=== PATIENT | male | born 1970 | race Caucasian/White ===

== ENCOUNTER → 2019-12-05 08:35 | Outpatient (BNVA) | payer OTHER, SELFPAY | PROVIDERS: Visit Provider Nurse Practitioner | DX: Z87.19 Personal history of other diseases of the digestive system (principal) | CPT/HCPCS: 99212 ==

== ENCOUNTER 2020-10-03 08:59 | Outpatient (REF) | payer OTHER, SELFPAY ==
[2020-10-03 12:23] LABS: Alanine Aminotransferase 47 U/L (0-40); Albumin Level 4.6 g/dL (3.5-5.0); Alkaline Phosphatase 95 U/L (39-117); Anion Gap 14 (12-20); Aspartate Amino Transferase 39 U/L (5-37); Bilirubin Total 0.5 mg/dL (0.0-1.0); Blood Urea Nitrogen 16 mg/dL (9-16); Calcium 9.5 mg/dL (8.4-10.2); Carbon Dioxide 22 mmol/L (22-29); Chloride 108 mmol/L (96-108); Cholesterol 202 mg/dL; Estimated Glomerular Filt Rate > 60; Glucose Fasting 119 mg/dL (60-99); HDL Cholesterol 45 mg/dL; LDL Cholesterol Calculated 121 mg/dl; Potassium 4.2 mmol/L (3.3-5.1); Sodium 140 mmol/L (135-145); Total Protein 7.3 g/dL (6.5-8.0); Triglycerides 181 mg/dL
== END 2020-10-03 09:00 | disposition home or self-care (01) ==
LOC: HO.HMGCLDS 08:59
PROVIDERS: PCP Internal Medicine; Visit Provider Internal Medicine
DX: Z00.01 Encounter for general adult medical examination with abnormal findings (principal); E78.1 Pure hyperglyceridemia
CPT/HCPCS: 36415; 80053; 80061

== ENCOUNTER → 2020-11-27 08:30 | Outpatient (BNVA) | payer OTHER, SELFPAY | PROVIDERS: Visit Provider Nurse Practitioner | DX: Z13.89 Encounter for screening for other disorder (principal) | CPT/HCPCS: Q3014 ==

== ENCOUNTER 2021-09-30 08:26 | Outpatient (REF) | payer OTHER, SELFPAY ==
[2021-09-30 11:59] LABS: Alanine Aminotransferase 15 U/L (0-40); Albumin Level 4.5 g/dL (3.5-5.0); Alkaline Phosphatase 86 U/L (39-117); Anion Gap 14 (12-20); Aspartate Amino Transferase 20 U/L (5-37); Bilirubin Total 0.6 mg/dL (0.0-1.0); Blood Urea Nitrogen 13 mg/dL (9-16); Calcium 9.2 mg/dL (8.4-10.2); Carbon Dioxide 25 mmol/L (22-29); Chloride 105 mmol/L (96-108); Cholesterol 200 mg/dL; Estimated Glomerular Filt Rate > 60; Glucose Fasting 104 mg/dL (60-99); HDL Cholesterol 46 mg/dL; LDL Cholesterol Calculated 117 mg/dl; Potassium 4.3 mmol/L (3.3-5.1); Sodium 140 mmol/L (135-145); Total Protein 7.3 g/dL (6.5-8.0); Triglycerides 189 mg/dL
== END 2021-09-30 08:27 | disposition home or self-care (01) ==
LOC: HO.HMGCLDS 08:26
PROVIDERS: PCP Internal Medicine; Visit Provider Internal Medicine
DX: E78.1 Pure hyperglyceridemia (principal); R73.01 Impaired fasting glucose; E66.9 Obesity, unspecified
CPT/HCPCS: 36415; 80053; 80061

== ENCOUNTER 2022-01-11 10:03 | Outpatient (REF) | payer OTHER, SELFPAY ==
[2022-01-11 11:44] LABS: Estimated Average Glucose 108 mg/dL; Hemoglobin A1c % 5.4 %
[2022-01-11 12:12] LABS: Alanine Aminotransferase 15 U/L (0-40); Anion Gap 15 (12-20); Aspartate Amino Transferase 18 U/L (5-37); Blood Urea Nitrogen 18 mg/dL (9-16); Calcium 9.6 mg/dL (8.4-10.2); Carbon Dioxide 26 mmol/L (22-29); Chloride 106 mmol/L (96-108); Cholesterol 180 mg/dL; Estimated Glomerular Filt Rate > 60; Glucose Fasting 117 mg/dL (60-99); HDL Cholesterol 61 mg/dL; LDL Cholesterol Calculated 105 mg/dl; Potassium 4.5 mmol/L (3.3-5.1); Sodium 142 mmol/L (135-145); Triglycerides 70 mg/dL
== END 2022-01-11 10:04 | disposition home or self-care (01) ==
LOC: HO.HMGCLDS 10:03
PROVIDERS: PCP Internal Medicine; Visit Provider Internal Medicine
DX: E66.9 Obesity, unspecified (principal); R73.01 Impaired fasting glucose; E78.1 Pure hyperglyceridemia
CPT/HCPCS: 36415; 80048; 80061; 83036; 84450; 84460

== ENCOUNTER 2022-07-20 10:26 | Outpatient (AMB) | payer OTHER, SELFPAY ==
--- NOTE | 2022-07-20 11:28 | A.OFFPC_ITS ---
<Statement entered by Flores High MD - 06/13/24 15:17> This note has been administratively?closed. Vital Signs 07/20/22 11:39 Height 6 ft 2 in Weight 264 lb BMI 33.9 BP 100/74 Blood Pressure Location Lt brachial Position Sitting Pulse 64 Pulse Source Pulse Oximeter Pulse Oximetry (%) 94 Oxygen Delivery Method Room Air Intake Visit Reasons: Annual Intake Note: Pt is here today for his Physical Exam Allergies penicillin G [Penicillin G] Allergy (Unknown, Verified 07/20/22 11:51) EYES SWELL egg Allergy (Verified 07/20/22 11:51) Diarrhea barium sulfate Adverse Reaction (Unknown, Verified 07/20/22 11:51) mood swings oxycodone [Percocet] Adverse Reaction (Unknown, Verified 07/20/22 11:51) gi upset zyban Adverse Reaction (Unknown, Uncoded 07/20/22 11:51) flatulence Medication List - Last Reconciled 07/20/22 by Flores High MD brimonidine 0.2% 1 drp ophthalmic (eye) BID famotidine 20 mg PO BEDTIME PRN gemfibrozil 600 mg PO BID 90 days timolol maleate (PF) 0.5% 1 drp ophthalmic (eye) DAILY Tobacco use date assessed: 07/20/22 HPI Annual HPI Details 52-year-old male with impaired fasting glucose, history of glaucoma, hypertriglyceridemia and heartburn, here today for physical exam. He continues to smoke cigarettes, but has been trying to cut back, not motivated to quit altogether.. He has had 2 COVID vaccine but has not had booster, nor does he get flu shots, up-to-date with Tdap [facility] Medical History COVID-19 vaccination declined Glaucoma Heartburn Hx of pancreatitis Hypertriglyceridemia Impaired fasting glucose Obesity (BMI 30-39.9) Smoker unmotivated to quit Surgical History Status post glaucoma surgery Family History Father Cerebral aneurysm Mother Hyperlipidemia Hypertension Diabetes mellitus Social History Housing: House Alcohol intake: former Patient Tobacco Use Status: Current everyday Tobacco user Tobacco use type: Cigarette Cigarettes Per Day: 4 e-Cigarette/Vaping Use: Never Used Substance Use Type: Marijuana service: No Current occupational status: disabled Cognitive needs: No Hearing needs: No Vision needs: Yes Questionnaire PHQ-9 Over the last 2 weeks, how often have you been bothered by any of the following problems? 1. Little interest or pleasure in doing things: not at all 2. Feeling down, depressed, or hopeless: not at all 3. Trouble falling or staying asleep, or sleeping too much: several days 4. Feeling tired or having little energy: not at all 5. Poor appetite or overeating: not at all 6. Feeling bad about yourself - or that you are a failure or have let yourself or your family down: not at all 7. Trouble concentrating on things, such as reading the newspaper or watching television: not at all 8. Moving or speaking so slowly that other people could have noticed. Or the opposite - being so fidgety or restless that you have been moving around a lot more than usual: not at all 9. Thoughts that you would be better off or of hurting yourself in some way: not at all Total score: 1 Depression Screening Interpretation: Negative 98968 - PHQ-9 Billing: Yes Source: Developed by Drs. Wilber Arellano, Tanika Zambrano, Palmer Tabares and colleagues, with an educational grace from [employer]. Thrive Questionnaire Date Thrive assessed: 07/20/22 I am a: Patient What is your living situation today?: I have a steady place to live Within the past 12 months, did the food you bought not last and you didn't have the money to get more?: Never true Within the past 12 months, did you worry whether your food would run out before you got money to buy more?: Never true Do you have trouble paying for medicines?: No Do you have trouble getting transportation to medical appointments?: No Do you have trouble paying your heating and electricity bill?: No Do you have trouble taking care of your child, family member or friend?: No Do you have trouble with day-to-day activities such as bathing, preparing meals, shopping, managing finances, etc.?: No Are you currently unemployed and looking for a job?: No Are you interested in more education?: No AUDIT C Alcohol Use Questionnaire (AUDIT-C) 1. How often do you have a drink containing alcohol?: Monthly or less 2. How many drinks containing alcohol do you have on a typical day when you are drinking?: 1 or 2 3. How often do you have six or more drinks on one occasion?: Never Total Score: 1 JAEL-7 AMB Questionnaire JAEL-7 Date JAEL - 7 assessed: 07/20/22 Feeling nervous, anxious, or on edge: 0 = Not at all Not being able to stop or control worryin = Not at all Worrying too much about different things: 0 = Not at all Trouble relaxin = Not at all Being so restless that it is hard to sit still: 0 = Not at all Becoming easily annoyed or irritable: 0 = Not at all Feeling afraid as if something awful might happen: 0 = Not at all Total JAEL-7 score (0-4 normal; 5-9 mild; 10-14 moderate; 15-21 severe): 0 Source: Developed by Drs. Wilber Arellano, Tanika Zambrano, Palmer Tabares and colleagues, with an educational grace from [employer]. JAEL-7 Assessment Billing JAEL-7 Assessment Tool: JAEL-7 Assessment 37463 Review of Systems Const Reports as per HPI, Denies fever(s), Denies night sweats and Denies poor appetite Eyes Details: Currently sees Dr. Dent, has glaucoma Denies change in vision ENT Denies dysphagia, Denies hearing loss, Denies mouth pain, Denies throat swelling and Reports other (Dentition adequate) Card Reports no additional complaints Resp Reports no additional complaints GI Denies abdominal pain, Denies melena, Denies bloating, Denies hematochezia, Denies constipation, Denies GI cramping, Denies dysphagia, Denies excessive flatus, Denies early satiety, Denies heartburn, Denies diarrhea and Denies nausea Reports no additional complaints Musc Reports no additional complaints Skin/Breast Denies pruritus, Denies lesions, Denies rash and Denies jaundice Neuro Reports no additional complaints Psych Reports no additional complaints Endo Reports no additional complaints Todd/Lymph Reports no additional complaints Aller/Immun Denies throat swelling Physical exam (Primary Care) Vital Signs: Last Vital Signs Pulse 64 07/20/22 11:39 BP 100/74 07/20/22 11:39 Pulse Ox 94 07/20/22 11:39 Oxygen Delivery Method Room Air 07/20/22 11:39 BMI result Body Mass Index 33.9 Tobacco/Smoking Status: Tobacco use Status Tobacco use date assessed 07/20/22 07/20/22 11:30 Patient Tobacco Use Status Current everyday Tobacco 07/20/22 11:30 Tobacco use type Cigarette 07/20/22 11:30 e-Cigarette/Vaping Use Never Used 07/20/22 11:44 PHQ-9: PHQ-9 Score PHQ-9: Total score 1 07/20/22 11:44 Depression Screening Interpretation: Negative Thrive Assessment: Date of Thrive Assessment Date Thrive assessed 07/20/22 07/20/22 11:30 Const General: cooperative, comfortable and no acute distress Orientation/consciousness: patient oriented x3 Limitations: no limitations HENMT Head: Yes normocephalic and Yes atraumatic Ears: hearing grossly normal bilaterally, external ears normal, TM's normal bilaterally and EAC's normal General nose exam: Normal external nose present and No nasal discharge present Mouth: Normal oral and palatal mucosa present, oropharynx normal and moist mucous membranes Teeth and gingiva: edentulous Eyes General: appearance normal, both eyes and all related structures Conjunctivae: conjunctivae normal Pupils: Equal, round and reactive pupils present EOM: EOMs intact bilaterally Neck Neck: Yes full ROM, Yes no lymphadenopathy and Yes supple Chest Chest palpation & inspection: normal inspection of the chest Resp Effort & Inspection: normal respiratory effort and able to speak in complete sentences Auscultation: clear to auscultation bilaterally Cardio Rate: regular rate Rhythm: regular rhythm Heart sounds: S1 normal heart sound present and S2 normal heart sound present GI Inspection: Yes obesity Palpation (GI): Soft to palpation, nontender and no masses Auscultation: normal bowel sounds General: Yes no CVA tenderness Male General Exam: Yes normal external exam Penis: normal penis Back/Spine/Pelvis Back: no CVA tenderness Skin General skin exam: no rashes or lesions noted Neuro General: patient oriented x3, gait normal, tone normal, moves all extremities, Normal light touch and pain sensation and no focal motor deficits Cranial nerves: Yes Equal, round and reactive pupils present Cognition (Neuro): normal cognition Gait exam (Neuro): Normal gait present Motor exam (neuro): 5/5 motor strength present throughout Extrem General: Yes full ROM, Yes no joint enlargement, Yes no clubbing, cyanosis or edema, Yes no calf tenderness and Yes normal gait Psych Appearance: grossly normal and well kempt Mental Status: mental status grossly normal Speech and movement: Normal speech and movement present Affect: normal affect Attitude: cooperative Thought process: Normal thought process present Thought content: Normal thought content present Assessment and Plan Assessment & Plan (1) Annual visit for general adult medical examination with abnormal findings: Code(s): Z00.01 - Encounter for general adult medical examination with abnormal findings (2) COVID-19 vaccination declined: Code(s): Z28.21 - Immunization not carried out because of patient refusal (3) Smoker unmotivated to quit: Code(s): F17.200 - Nicotine dependence, unspecified, uncomplicated (4) Impaired fasting glucose: Code(s): R73.01 - Impaired fasting glucose (5) Obesity (BMI 30-39.9): Code(s): E66.9 - Obesity, unspecified (6) Glaucoma: Comment: ff'd by Dr Dent Code(s): H40.9 - Unspecified glaucoma (7) Hypertriglyceridemia: Code(s): E78.1 - Pure hyperglyceridemia Coding Level of Care Code Est Pt Prev Care 40-64y(10306) Diagnoses Annual visit for general adult medical examination with abnormal findings Z00.01 COVID-19 vaccination declined Z28.21 Smoker unmotivated to quit F17.200 Impaired fasting glucose R73.01 Obesity (BMI 30-39.9) E66.9 Glaucoma H40.9 Hypertriglyceridemia E78.1 Additional Codes JAEL-7 Assessment Billing - JAEL-7 Assessment Tool: JAEL-7 Assessment 74326 ([id number])
[2022-07-20 11:39] VITALS: BP 100/74; PULSE 64; O2SAT 94; BMI 33.9
== END 2022-07-20 12:24 | disposition home or self-care (01) ==
LOC: HO.HMGC 10:26
PROVIDERS: PCP Internal Medicine; Visit Provider Internal Medicine
DX: Z00.01 Encounter for general adult medical examination with abnormal findings (principal); Z28.21 Immunization not carried out because of patient refusal; F17.200 Nicotine dependence, unspecified, uncomplicated; R73.01 Impaired fasting glucose; E66.9 Obesity, unspecified; H40.9 Unspecified glaucoma; E78.1 Pure hyperglyceridemia
CPT/HCPCS: 99499

== ENCOUNTER 2023-01-13 08:22 | Outpatient (REF) | payer OTHER, SELFPAY ==
[2023-01-13 11:46] LABS: Estimated Average Glucose 105 mg/dL; Hemoglobin A1c % 5.3 % (<6.0)
[2023-01-13 11:50] LABS: Alanine Aminotransferase 18 U/L (0-40); Aspartate Amino Transferase 24 U/L (5-37); Cholesterol 191 mg/dL (<200); Glucose Fasting 113 mg/dL (60-99); HDL Cholesterol 43 mg/dL (>40); LDL Cholesterol Calculated 123 mg/dL (<100); Triglycerides 125 mg/dL (<150)
== END 2023-01-13 08:23 | disposition home or self-care (01) ==
LOC: HO.HMGCLDS 08:22
PROVIDERS: PCP Internal Medicine; Visit Provider Internal Medicine
DX: R73.01 Impaired fasting glucose (principal); E66.9 Obesity, unspecified; E78.1 Pure hyperglyceridemia
CPT/HCPCS: 36415; 80061; 82947; 83036; 84450; 84460

== ENCOUNTER 2023-01-17 11:26 | Outpatient (AMB) | payer OTHER, SELFPAY ==
[2023-01-17 12:04] VITALS: BP 100/68; PULSE 55; O2SAT 97; BMI 33.4
--- NOTE | 2023-01-17 12:04 | A.OFFPC_ITS ---
Vital Signs 01/17/23 12:04 Height 6 ft 2 in Weight 260 lb 6 oz BMI 33.4 BP 100/68 Blood Pressure Location Rt brachial Position Sitting Pulse 55 Pulse Source Pulse Oximeter Pulse Oximetry (%) 97 Oxygen Delivery Method Room Air Intake Visit Reasons: hypertriglyceridemia ,obesity, fasting glucose Intake Note: Pt is here to follow up for his lab results Allergies penicillin G [Penicillin G] Allergy (Unknown, Verified 01/17/23 12:35) EYES SWELL egg Allergy (Verified 01/17/23 12:35) Diarrhea barium sulfate Adverse Reaction (Unknown, Verified 01/17/23 12:35) mood swings oxycodone [Percocet] Adverse Reaction (Unknown, Verified 01/17/23 12:35) gi upset zyban Adverse Reaction (Unknown, Uncoded 01/17/23 12:35) flatulence Medication List - Last Reconciled 01/17/23 by Flores High MD brimonidine 0.2% 1 drp ophthalmic (eye) BID famotidine 20 mg PO BEDTIME PRN gemfibrozil 600 mg PO BID 90 days timolol maleate (PF) 0.5% 1 drp ophthalmic (eye) DAILY Tobacco use date assessed: 01/17/23 Dental Screening Dental Screen Date: 01/17/23 Did you have a dental visit in the last 12 months?: No Did you have a dental problem in the last 6 months where you did not have access to dental care?: No Was dental information given to patient?: No HPI hypertriglyceridemia ,obesity, fasting glucose HPI Details 53-year-old male hypertriglyceridemia, a nd prediabetes, here today for his follow-up. He is currently on gemfibrozil, and has been trying to follow recommended diet, unable to exercise much due to joint pains. Recent fasting labs done showed fasting blood sugar at 113 mg per dL, with hemoglobin A1c at 5.3%; liver enzymes are normal and fasting lipids showed results within normal limits. Continues to smoke cigarettes, with no desire to quit at present time. HPI Comments History of Present Illness Details 53-year-old male with hypertriglyceridem ia, obesity, and prediabetes, here today for follow-up. FORMERLY [facility], [facility] Medical History COVID-19 vaccination declined Heartburn Smoker unmotivated to quit Impaired fasting glucose Obesity (BMI 30-39.9) Hx of pancreatitis Glaucoma Hypertriglyceridemia Surgical History Status post glaucoma surgery Family History Father Cerebral aneurysm Mother Hyperlipidemia Hypertension Diabetes mellitus Social History Housing: House Alcohol intake: former Patient Tobacco Use Status: Current everyday Tobacco user Tobacco use type: Cigarette Cigarettes Per Day: 4 e-Cigarette/Vaping Use: Never Used Substance Use Type: Marijuana service: No Current occupational status: disabled Cognitive needs: No Hearing needs: No Vision needs: Yes Questionnaire PHQ-9 Over the last 2 weeks, how often have you been bothered by any of the following problems? Depression Screening Interpretation: Negative Depression Screening Done: Yes Source: Developed by Drs. Wilber Arellano, Tanika Zambrano, Palmer Tabares and colleagues, with an educational grace from [employer]. Thrive Questionnaire Date Thrive assessed: 07/20/22 JAEL-7 AMB Questionnaire JAEL-7 Date JAEL - 7 assessed: 07/20/22 Source: Developed by Drs. Wilber Arellano, Tanika Zambrano, Palmer Tabares and colleagues, with an educational grace from [employer]. Review of Systems Const Denies fever(s) Eyes Details: Currently sees Dr. Dent, has glaucoma Denies change in vision ENT Denies hearing loss and Denies mouth pain Card Reports no additional complaints Resp Reports no additional complaints GI Reports no additional complaints and Reports heartburn (Controlled on famotidine) Reports no additional complaints Musc Reports no additional complaints Skin/Breast Denies pruritus, Denies lesions, Denies rash and Denies jaundice Neuro Reports no additional complaints Psych Reports no additional complaints Endo Reports no additional complaints Todd/Lymph Reports no additional complaints Aller/Immun Reports no additional complaints Physical exam (Primary Care) Vital Signs: Last Vital Signs Pulse 55 01/17/23 12:04 BP 100/68 01/17/23 12:04 Pulse Ox 97 01/17/23 12:04 Oxygen Delivery Method Room Air 01/17/23 12:04 BMI result Body Mass Index 33.4 Tobacco/Smoking Status: Tobacco use Status Tobacco use date assessed 01/17/23 01/17/23 12:09 Patient Tobacco Use Status Current everyday Tobacco 01/17/23 12:06 Tobacco use type Cigarette 01/17/23 12:06 e-Cigarette/Vaping Use Never Used 01/17/23 12:06 Depression Screening Interpretation: Negative Thrive Assessment: Date of Thrive Assessment Date Thrive assessed 07/20/22 01/17/23 12:06 Const General: cooperative, comfortable and no acute distress Orientation/consciousness: patient oriented x3 HENMT Head: Yes normocephalic and Yes atraumatic Ears: hearing grossly normal bilaterally and external ears normal General nose exam: Normal external nose present Mouth: Normal oral and palatal mucosa present and moist mucous membranes Teeth and gingiva: edentulous Eyes General: appearance normal, both eyes and all related structures Conjunctivae: conjunctivae normal Pupils: Equal, round and reactive pupils present EOM: EOMs intact bilaterally Neck Neck: Yes full ROM, Yes no lymphadenopathy and Yes supple Chest Chest palpation & inspection: normal inspection of the chest Resp Effort & Inspection: normal respiratory effort and able to speak in complete sentences Auscultation: clear to auscultation bilaterally Cardio Rate: regular rate Rhythm: regular rhythm Heart sounds: S1 normal heart sound present and S2 normal heart sound present GI Inspection: Yes obesity Palpation (GI): Soft to palpation, nontender and no masses Auscultation: normal bowel sounds General: Yes no CVA tenderness Male General Exam: Yes normal external exam Penis: normal penis Back/Spine/Pelvis Back: no CVA tenderness Skin General skin exam: no rashes or lesions noted Neuro General: patient oriented x3, gait normal, tone normal, moves all extremities, Normal light touch and pain sensation and no focal motor deficits Cranial nerves: Yes Equal, round and reactive pupils present Cognition (Neuro): normal cognition Gait exam (Neuro): Normal gait present Motor exam (neuro): 5/5 motor strength present throughout Extrem General: Yes full ROM, Yes no joint enlargement, Yes no clubbing, cyanosis or edema, Yes no calf tenderness and Yes normal gait Psych Appearance: grossly normal and well kempt Mental Status: mental status grossly normal Speech and movement: Normal speech and movement present Affect: normal affect Attitude: cooperative Thought process: Normal thought process present Thought content: Normal thought content present Results Reviewed Results Reviewed: Laboratory Tests 12/07/23 08:35 Estimat Average Glucose 105 Hemoglobin A1c % 5.3 Name: ParentWilber Age/Sex: 52/M : 1970 Unit#: [id number] Attend Dr: Flores High MD Re01/13/23 Status: DEP REF Location: [facility] Disch: SPEC : [id number] SHAW[place]: 01/13/23 STATUS: COMP REQ : [id number] RECD: 01/13/[address]: Flores High MD COMP: 01/13/23 ENTERED: 01/13/[address] [facility] [address]: ORDERED: Glu Fasting, AST, ALT, Lipid Panel Test Result Flag Reference Site FBS 113 H 60-99 mg/dL A fasting glucose from 100-125 mg/dl is considered impaired (pre-diabetes). AST (GOT) 24 5-37 U/L ALT (GPT) 18 0-40 U/L Triglyceride 125 <150 mg/dL Desirable Triglyceride: less than 150 mg/dL Borderline High Triglyceride 150-199 mg/dL High Triglyceride: 200-499 mg/dL Very High Triglyceride: greater than or equal to 5OO mg/dL Cholesterol 191 <200 mg/dL Desirable Cholesterol: less than 200 mg/dL Borderline High Cholesterol: 200-239 mg/dL High Cholesterol: greater than 239 mg/dL LDL Calculated 123 H <100 mg/dL Desirable LDL: less than 100 mg/dL Near Optimal/Above Optimal LDL: 110-129 mg/dL Borderline High LDL: 130-159 mg/dL High LDL: 160-189 mg/dL Very High LDL: greater than or equal to 190 mg/dL HDL 43 >40 mg/dL Desirable HDL: greater than 40 mg/dL Note: This HDL assay may give artificially low results in patients with liver disease. Assessment and Plan Assessment & Plan (1) Impaired fasting glucose: Code(s): R73.01 - Impaired fasting glucose Plan: Your fasting blood sugars is elevated above 100 mg/dL. Impaired glucose metabolism O2 at risk for developing diabetes mellitus type 2, as well as heart attack and stroke later on. Lifestyle changes at just weight loss, healthy eating habits, and regular exercise are important, and can prevent the progression to diabetes (2) Hypertriglyceridemia: Code(s): E78.1 - Pure hyperglyceridemia Plan: Fasting lipids are within normal limits, continue with gemfibrozil in addition to adhering to low-cholesterol diet and staying active. (3) Smoker unmotivated to quit: Code(s): F17.200 - Nicotine dependence, unspecified, uncomplicated Plan: Patient strongly advised to stop smoking, as smoking damages blood vessels, degenerative of joints and spine, damage to lungs and heart., predisposes to developing certain cancers like lung, breast, bladder, colon. Recommended to try decreasing cigarette use by 1-2 cigarettes a day. Advised to monitor what triggers are for smoking so that this can be discussed on the next office visit. We can discuss different options to quit smoking when ready. Orders: Orders Hemoglobin A1c 07/09/23 F17.200 - Nicotine dependence, unspecified, uncomplicated, R73.01 - Impaired fasting glucose, E78.1 - Pure hyperglyceridemia Glucose Fasting 07/09/23 F17.200 - Nicotine dependence, unspecified, uncomplicated, R73.01 - Impaired fasting glucose, E78.1 - Pure hyperglyceridemia Lipid Panel 07/09/23 F17.200 - Nicotine dependence, unspecified, uncomplicated, R73.01 - Impaired fasting glucose, E78.1 - Pure hyperglyceridemia Aspartate Amino Transferase 07/09/23 F17.200 - Nicotine dependence, unspecified, uncomplicated, R73.01 - Impaired fasting glucose, E78.1 - Pure hyperglyceridemia Alanine Aminotransferase 07/09/23 F17.200 - Nicotine dependence, unspecified, uncomplicated, R73.01 - Impaired fasting glucose, E78.1 - Pure hyperglyceridemia Coding Level of Care Code Est Pt Level 4 (50862) Diagnoses Impaired fasting glucose R73.01 Hypertriglyceridemia E78.1 Smoker unmotivated to quit F17.200
== END 2023-01-17 12:51 | disposition home or self-care (01) ==
PROVIDERS: PCP Internal Medicine; Visit Provider Internal Medicine
DX: R73.01 Impaired fasting glucose (principal); E78.1 Pure hyperglyceridemia; F17.200 Nicotine dependence, unspecified, uncomplicated
CPT/HCPCS: 99214

== ENCOUNTER 2023-07-21 08:20 | Outpatient (REF) | payer OTHER, SELFPAY ==
[2023-07-21 10:48] LABS: Estimated Average Glucose 105 mg/dL; Hemoglobin A1C 142.1881 umol/L; Hemoglobin A1c % 5.3 % (<6.0)
[2023-07-21 10:50] LABS: Alanine Aminotransferase 16 U/L (0-40); Aspartate Amino Transferase 22 U/L (5-37); Cholesterol 179 mg/dL (<200); Glucose Fasting 104 mg/dL (60-99); HDL Cholesterol 45 mg/dL (>40); LDL Cholesterol Calculated 112 mg/dL (<100); Triglycerides 114 mg/dL (<150)
== END 2023-07-21 08:21 | disposition home or self-care (01) ==
LOC: HO.HMGCLDS 08:20
PROVIDERS: PCP Internal Medicine; Visit Provider Internal Medicine
DX: F17.200 Nicotine dependence, unspecified, uncomplicated (principal); R73.01 Impaired fasting glucose; E78.1 Pure hyperglyceridemia
CPT/HCPCS: 36415; 80061; 82947; 83036; 84450; 84460

== ENCOUNTER 2023-07-27 10:41 | Outpatient (AMB) | payer OTHER, SELFPAY ==
--- NOTE | 2023-07-27 10:49 | MHC.PC.OV ---
Vital Signs 07/27/23 10:50 Height 6 ft 2 in Weight 252 lb BMI 32.4 BP 106/68 Blood Pressure Location Lt brachial Position Sitting Pulse 65 Pulse Source Pulse Oximeter Pulse Oximetry (%) 97 Oxygen Delivery Method Room Air Intake Visit Reasons: Annual Intake Note: pt is here for annual PE. Cologuard 01/15/23 Allergies penicillin G [Penicillin G] Allergy (Unknown, Verified 07/27/23 11:16) EYES SWELL egg Allergy (Verified 07/27/23 11:16) Diarrhea barium sulfate Adverse Reaction (Unknown, Verified 07/27/23 11:16) mood swings oxycodone [Percocet] Adverse Reaction (Unknown, Verified 07/27/23 11:16) gi upset zyban Adverse Reaction (Unknown, Uncoded 07/27/23 11:16) flatulence Medication List - Last Reconciled 07/27/23 by Flores High MD brimonidine 0.2% 1 drp ophthalmic (eye) BID famotidine 20 mg PO BEDTIME PRN gemfibrozil 600 mg PO BID 90 days timolol maleate (PF) 0.5% 1 drp ophthalmic (eye) DAILY Tobacco use date assessed: 07/27/23 Dental Screening Dental Screen Date: 07/27/23 Did you have a dental visit in the last 12 months?: No Did you have a dental problem in the last 6 months where you did not have access to dental care?: No Was dental information given to patient?: No HPI Annual HPI Details 53-year-old male with hypertriglyceridemia, and prediabetes, here today for his physical exam. He currently sees Dr. Dent for glaucoma and routine eye exam, is legally blind. . Did not do his Cologuard test , does not want to go and have any colon cancer screening done. Declines getting any further COVID vaccine. Continues to smoke cigarettes, with no does desire to quit at present time. [facility] Medical History (Updated 07/27/23 @ 11:52 by Flores High MD) Legal blindness Colon cancer screening declined COVID-19 vaccination declined Heartburn Smoker unmotivated to quit Impaired fasting glucose Obesity (BMI 30-39.9) Hx of pancreatitis Glaucoma Hypertriglyceridemia Surgical History Status post glaucoma surgery Family History Father Cerebral aneurysm Mother Hyperlipidemia Hypertension Diabetes mellitus Social History Housing: House Alcohol intake: former Patient Tobacco Use Status: Current everyday Tobacco user Tobacco use type: Cigarette Cigarettes Per Day: 4 e-Cigarette/Vaping Use: Never Used Substance Use Type: Marijuana service: No Current occupational status: disabled Cognitive needs: No Hearing needs: No Vision needs: Yes Questionnaire PHQ-9 Over the last 2 weeks, how often have you been bothered by any of the following problems? 1. Little interest or pleasure in doing things: not at all 2. Feeling down, depressed, or hopeless: not at all 3. Trouble falling or staying asleep, or sleeping too much: several days 4. Feeling tired or having little energy: not at all 5. Poor appetite or overeating: not at all 6. Feeling bad about yourself - or that you are a failure or have let yourself or your family down: not at all 7. Trouble concentrating on things, such as reading the newspaper or watching television: not at all 8. Moving or speaking so slowly that other people could have noticed. Or the opposite - being so fidgety or restless that you have been moving around a lot more than usual: not at all 9. Thoughts that you would be better off or of hurting yourself in some way: not at all Total score: 1 Depression Screening Interpretation: Negative Depression Screening Done: Yes 04408 - PHQ-9 Billing: Yes Source: Developed by Drs. Wliber Arellano, Tanika Zambrano, Palmer Tabares and colleagues, with an educational grace from [employer]). Thrive Questionnaire Date Thrive assessed: 07/27/23 I am a: Patient What is your living situation today?: I have a steady place to live Within the past 12 months, did the food you bought not last and you didn't have the money to get more?: Never true Within the past 12 months, did you worry whether your food would run out before you got money to buy more?: Never true Do you have trouble paying for medicines?: No Do you have trouble getting transportation to medical appointments?: No Do you have trouble paying your heating and electricity bill?: No Do you have trouble taking care of your child, family member or friend?: No Do you have trouble with day-to-day activities such as bathing, preparing meals, shopping, managing finances, etc.?: No Are you currently unemployed and looking for a job?: No Are you interested in more education?: No Please select the resources that you would like help with: None Currently or been in a relationship where the following occur: no concerns reported THRIVE Score: 0 AUDIT C Alcohol Use Questionnaire (AUDIT-C) 1. How often do you have a drink containing alcohol?: 2-4 times a month 2. How many drinks containing alcohol do you have on a typical day when you are drinking?: 5 or 6 3. How often do you have six or more drinks on one occasion?: Monthly Total Score: 6 Score Reviewed/Action Taken: Yes JAEL-7 AMB Questionnaire JAEL-7 Date JAEL - 7 assessed: 07/27/23 Feeling nervous, anxious, or on edge: 0 = Not at all Not being able to stop or control worryin = Not at all Worrying too much about different things: 0 = Not at all Trouble relaxin = Not at all Being so restless that it is hard to sit still: 0 = Not at all Becoming easily annoyed or irritable: 1 = Several days Feeling afraid as if something awful might happen: 0 = Not at all Total JAEL-7 score (0-4 normal; 5-9 mild; 10-14 moderate; 15-21 severe): 1 Source: Developed by Drs. Wilber Arellano, Tanika Zambrano, Palmer Tabares and colleagues, with an educational grace from [employer]). JAEL-7 Assessment Billing JAEL-7 Assessment Tool: JAEL-7 Assessment 04064 Review of Systems Const Reports no additional complaints Eyes Details: Currently sees Dr. Dent, has glaucoma, legally blind OU Denies change in vision ENT Denies hearing loss and Denies mouth pain Card Reports no additional complaints Resp Reports no additional complaints GI Reports no additional complaints and Reports heartburn (Controlled on famotidine) Reports no additional complaints Musc Reports no additional complaints Skin/Breast Denies pruritus, Denies lesions, Denies rash and Denies jaundice Neuro Reports no additional complaints Psych Reports no additional complaints Endo Reports no additional complaints Todd/Lymph Reports no additional complaints Aller/Immun Reports no additional complaints Physical exam (Primary Care) Vital Signs: Last Vital Signs Pulse 65 07/27/23 10:50 BP 106/68 07/27/23 10:50 Pulse Ox 97 07/27/23 10:50 Oxygen Delivery Method Room Air 07/27/23 10:50 BMI result Body Mass Index 32.4 Tobacco/Smoking Status: Tobacco use Status Tobacco use date assessed 07/27/23 07/27/23 11:03 Patient Tobacco Use Status Current everyday Tobacco 07/27/23 10:52 Tobacco use type Cigarette 07/27/23 10:52 e-Cigarette/Vaping Use Never Used 07/27/23 10:52 PHQ-9: PHQ-9 Score PHQ-9: Total score 2 07/27/23 11:03 Depression Screening Interpretation: Negative Thrive Assessment: Date of Thrive Assessment Date Thrive assessed 07/27/23 07/27/23 11:03 Currently or been in a relationship where the following occur: no concerns reported Const General: cooperative, comfortable and no acute distress Nutritional Appearance: obese Orientation/consciousness: patient oriented x3 HENMT Head: Yes normocephalic and Yes atraumatic Ears: hearing grossly normal bilaterally and external ears normal General nose exam: Normal external nose present Mouth: Normal oral and palatal mucosa present and moist mucous membranes Teeth and gingiva: edentulous Eyes General: appearance normal, both eyes and all related structures Conjunctivae: conjunctivae normal Pupils: Equal, round and reactive pupils present EOM: EOMs intact bilaterally Neck Neck: Yes full ROM, Yes no lymphadenopathy and Yes supple Chest Chest palpation & inspection: normal inspection of the chest Resp Effort & Inspection: normal respiratory effort and able to speak in complete sentences Auscultation: clear to auscultation bilaterally Cardio Rate: regular rate Rhythm: regular rhythm Heart sounds: S1 normal heart sound present and S2 normal heart sound present GI Inspection: Yes obesity Palpation (GI): Soft to palpation, nontender and no masses Auscultation: normal bowel sounds General: Yes no CVA tenderness Male General Exam: Yes normal external exam Penis: normal penis Back/Spine/Pelvis Back: no CVA tenderness Skin General skin exam: no rashes or lesions noted Neuro General: patient oriented x3, gait normal, tone normal, moves all extremities, Normal light touch and pain sensation and no focal motor deficits Cranial nerves: Yes Equal, round and reactive pupils present Cognition (Neuro): normal cognition Gait exam (Neuro): Normal gait present Motor exam (neuro): 5/5 motor strength present throughout Extrem General: Yes full ROM, Yes no joint enlargement, Yes no clubbing, cyanosis or edema, Yes no calf tenderness and Yes normal gait Psych Appearance: grossly normal and well kempt Mental Status: mental status grossly normal Speech and movement: Normal speech and movement present Affect: normal affect Attitude: cooperative Thought process: Normal thought process present Thought content: Normal thought content present Results Reviewed Results Reviewed: Name: ParentWilber Age/Sex: 53/M : 1970 Unit#: [id number] Attend Dr: Flores High MD Re07/21/23 Status: DEP REF Location: [facility] Disch: SPEC : [id number] [place]: 07/21/23 STATUS: COMP REQ : [id number] RECD: 07/21/23-[address]: Flores High MD COMP: 07/21/23 ENTERED: 07/21/[address]: ORDERED: Glu Fasting, AST, ALT, Lipid Panel Test Result Flag Reference FBS 104 H 60-99 mg/dL A fasting glucose from 100-125 mg/dl is considered impaired (pre-diabetes). AST (GOT) 22 5-37 U/L ALT (GPT) 16 0-40 U/L Triglyceride 114 <150 mg/dL Desirable Triglyceride: less than 150 mg/dL Borderline High Triglyceride 150-199 mg/dL High Triglyceride: 200-499 mg/dL Very High Triglyceride: greater than or equal to 5OO mg/dL Cholesterol 179 <200 mg/dL Desirable Cholesterol: less than 200 mg/dL Borderline High Cholesterol: 200-239 mg/dL High Cholesterol: greater than 239 mg/dL LDL Calculated 112 H <100 mg/dL Desirable LDL: less than 100 mg/dL Near Optimal/Above Optimal LDL: 110-129 mg/dL Borderline High LDL: 130-159 mg/dL High LDL: 160-189 mg/dL Very High LDL: greater than or equal to 190 mg/dL HDL 45 >40 mg/dL Desirable HDL: greater than 40 mg/dL Note: This HDL assay may give artificially low results in patients with liver disease. Laboratory Tests 07/21/23 08:24 Estimat Average Glucose 105 Hemoglobin A1c % 5.3 Assessment and Plan Assessment & Plan (1) Annual visit for general adult medical examination with abnormal findings: Code(s): Z00.01 - Encounter for general adult medical examination with abnormal findings Plan: Reviewed recent fasting lab results with patient . Up-to-date with his regular eye exam, sees Dr. Dent every 3 months for his glaucoma. Take adequate calcium in diet and vitamin-D 3 at 2000 IU per cap once a day, in addition to weight-bearing exercises to help maintain good muscle tone and weight control. Instructed to do self-testicular exam check for any mass. Does not want to get any COVID vaccine or flu shot, up-to-date with Tdap. Reminded to get his shingles vaccination (2) Hypertriglyceridemia: Code(s): E78.1 - Pure hyperglyceridemia Plan: Complains of feeling sleepy every time he takes his gemfibrozil, will cut down dose to just 600 mg at night. Recent fasting labs showed normal lipids. Continue with healthy eating habits and get at least 15 minutes of cardio exercise daily. Repeat another fasting lipid panel in 12/28/2023, lab ordered (3) COVID-19 vaccination declined: Code(s): Z28.21 - Immunization not carried out because of patient refusal (4) Heartburn: Code(s): R12 - Heartburn Plan: Takes famotidine as needed (5) Smoker unmotivated to quit: Code(s): F17.200 - Nicotine dependence, unspecified, uncomplicated Plan: Patient strongly advised to stop smoking, as smoking damages blood vessels, degenerative of joints and spine, damage to lungs and heart., predisposes to developing certain cancers like lung, breast, bladder, colon. Recommended to try decreasing cigarette use by 1-2 cigarettes a day. Advised to monitor what triggers are for smoking so that this can be discussed on the next office visit. We can discuss different options to quit smoking when ready. (6) Impaired fasting glucose: Code(s): R73.01 - Impaired fasting glucose Plan: Your fasting blood sugars elevated above 100 mg/dL. Impaired glucose metabolism increases year risk for developing diabetes mellitus type 2, as well as heart attack and stroke later on. Lifestyle changes, healthy eating habits, and regular exercise are important, and can prevent the progression to diabetes (7) Obesity (BMI 30-39.9): Code(s): E66.9 - Obesity, unspecified Plan: Discussed need to increase activity and weight reduction. Recommended focusing on improving health instead of dieting. Mediterranean diet is a healthy diet that helps, limit food high in fat, sugar, and calories. Eat slowly, pay attention to portion sizes, plan your meals ahead of time, start regular physical activity, at least 150 minutes of moderate intensity exercise, or 90 minutes per week of vigorous exercise. Keeping a food diary, tracking what you eat and your physical activity can help assess what improvements you can make. There are many health problems associated with being overweight/obese, so it is important to improve your diet and exercise. There are medications and surgical options available, but Lifestyle changes are the 1st step. (8) Glaucoma: Comment: ff'd by Dr Dent Code(s): H40.9 - Unspecified glaucoma Qualifiers: Glaucoma type: unspecified Laterality: bilateral Qualified Code(s): H40.9 - Unspecified glaucoma Plan: Followed by Dr. Dent every 3 month (9) Advanced directives, counseling/discussion: Code(s): Z71.89 - Other specified counseling Plan: Initiated the conversation about Advanced Directives. Advanced Directives help patients prepare for current and future decisions about their medical treatment and place of care. Discussed with patient that it is a process where a patients current condition and prognosis are reviewed, their wishes for information regarding their illness are elicited, and likely medical dilemmas are presented and options discussed. Healthcare proxy form completed today. The form can be amended as needed, reviewed yearly and make changes as needed (10) Colon cancer screening declined: Code(s): Z53.20 - Procedure and treatment not carried out because of patient's decision for unspecified reasons Plan Patient does not want to get any colon cancer screening, did not do his Cologuard test ordered last year Orders: Orders Lipid Panel 11/27/23 E78.1 - Pure hyperglyceridemia Alanine Aminotransferase 11/27/23 E78.1 - Pure hyperglyceridemia Aspartate Amino Transferase 11/27/23 E78.1 - Pure hyperglyceridemia Coding Level of Care Code New Pt Prev Care 40-64y(12441) Diagnoses Annual visit for general adult medical examination with abnormal findings Z00.01 Hypertriglyceridemia E78.1 COVID-19 vaccination declined Z28.21 Heartburn R12 Smoker unmotivated to quit F17.200 Impaired fasting glucose R73.01 Obesity (BMI 30-39.9) E66.9 Glaucoma of both eyes, unspecified glaucoma type H40.9 Glaucoma type: unspecified Laterality: bilateral Advanced directives, counseling/discussion Z71.89 Colon cancer screening declined Z53.20 Additional Codes JAEL-7 Assessment Billing - JAEL-7 Assessment Tool: JAEL-7 Assessment 24191 ([id number])
[2023-07-27 10:50] VITALS: BP 106/68; PULSE 65; O2SAT 97; BMI 32.4
== END 2023-07-27 12:43 | disposition home or self-care (01) ==
PROVIDERS: PCP Internal Medicine; Visit Provider Internal Medicine
DX: Z00.00 Encounter for general adult medical examination without abnormal findings (principal); E78.1 Pure hyperglyceridemia; Z28.21 Immunization not carried out because of patient refusal; R12 Heartburn; F17.210 Nicotine dependence, cigarettes, uncomplicated; R73.01 Impaired fasting glucose; E66.9 Obesity, unspecified; H40.9 Unspecified glaucoma; Z71.89 Other specified counseling; Z53.20 Procedure and treatment not carried out because of patient's decision for unspecified reasons
CPT/HCPCS: 99396

== ENCOUNTER 2023-12-09 07:46 | Outpatient (REF) | payer OTHER, SELFPAY ==
[2023-12-09 11:33] LABS: Alanine Aminotransferase 23 U/L (0-40); Aspartate Amino Transferase 36 U/L (5-37); Cholesterol 185 mg/dL (<200); HDL Cholesterol 42 mg/dL (>40); LDL Cholesterol Calculated 104 mg/dL (<100); Triglycerides 196 mg/dL (<150)
== END 2023-12-09 07:47 | disposition home or self-care (01) ==
LOC: HO.HMGCLDS 07:46
PROVIDERS: PCP Internal Medicine; Visit Provider Internal Medicine
DX: E78.1 Pure hyperglyceridemia (principal)
CPT/HCPCS: 36415; 80061; 84450; 84460

== ENCOUNTER 2023-12-13 11:19 | Outpatient (AMB) | payer OTHER, SELFPAY ==
[2023-12-13 12:02] VITALS: BP 110/66; PULSE 73; O2SAT 96; BMI 33.0
--- NOTE | 2023-12-13 12:02 | A.OFFPC_ITS ---
Vital Signs 12/13/23 12:02 Height 6 ft 2 in Weight 257 lb 2 oz BMI 33.0 BP 110/66 Blood Pressure Location Rt brachial Position Sitting Pulse 73 Pulse Source Pulse Oximeter Pulse Oximetry (%) 96 Oxygen Delivery Method Room Air Intake Visit Reasons: 5 Month F/U Labs Intake Note: Pt is here today for 5 month follow up on on labs Allergies penicillin G [Penicillin G] Allergy (Unknown, Verified 12/13/23 12:25) EYES SWELL egg Allergy (Verified 12/13/23 12:25) Diarrhea barium sulfate Adverse Reaction (Unknown, Verified 12/13/23 12:25) mood swings oxycodone [Percocet] Adverse Reaction (Unknown, Verified 12/13/23 12:25) gi upset zyban Adverse Reaction (Unknown, Uncoded 12/13/23 12:25) flatulence Medication List - Last Reconciled 12/13/23 by Flores High MD brimonidine 0.2% 1 drp ophthalmic (eye) BID famotidine 20 mg PO BEDTIME PRN gemfibrozil 600 mg PO BID 90 days timolol maleate (PF) 0.5% 1 drp ophthalmic (eye) DAILY Tobacco use date assessed: 12/13/23 Dental Screening Dental Screen Date: 12/13/23 Did you have a dental visit in the last 12 months?: Yes Did you have a dental problem in the last 6 months where you did not have access to dental care?: No Was dental information given to patient?: Patient has dentist HPI 5 Month F/U Labs HPI Details 53-year-old male with history of hypertr iglyceridemia, glaucoma, legally blind, , obesity, here today for follow-up. Compliant with taking his medications, tries to follow recommended diet, has been feeling well with no new complaints at present time. [facility] Medical History Legal blindness Colon cancer screening declined COVID-19 vaccination declined Heartburn Smoker unmotivated to quit Impaired fasting glucose Obesity (BMI 30-39.9) Hx of pancreatitis Glaucoma Hypertriglyceridemia Surgical History Status post glaucoma surgery Family History Father Cerebral aneurysm Mother Hyperlipidemia Hypertension Diabetes mellitus Social History Housing: House Alcohol intake: former Patient Tobacco Use Status: Current everyday Tobacco user Tobacco use type: Cigarette Cigarettes Per Day: 4 e-Cigarette/Vaping Use: Never Used Substance Use Type: Marijuana service: No Current occupational status: disabled Cognitive needs: No Hearing needs: No Vision needs: Yes Questionnaire PHQ-9 Over the last 2 weeks, how often have you been bothered by any of the following problems? 1. Little interest or pleasure in doing things: not at all 2. Feeling down, depressed, or hopeless: not at all 3. Trouble falling or staying asleep, or sleeping too much: not at all 4. Feeling tired or having little energy: not at all 5. Poor appetite or overeating: not at all 6. Feeling bad about yourself - or that you are a failure or have let yourself or your family down: not at all 7. Trouble concentrating on things, such as reading the newspaper or watching television: not at all 8. Moving or speaking so slowly that other people could have noticed. Or the opposite - being so fidgety or restless that you have been moving around a lot more than usual: not at all 9. Thoughts that you would be better off or of hurting yourself in some way: not at all Total score: 0 Depression Screening Interpretation: Negative Depression Screening Done: Yes 52314 - PHQ-9 Billing: Yes Source: Developed by Drs. Wilber Arellano, Tanika Zambrano, Palmer Tabares and colleagues, with an educational grace from [employer]. Thrive Questionnaire Date Thrive assessed: 12/13/23 I am a: Patient What is your living situation today?: I have a steady place to live Within the past 12 months, did the food you bought not last and you didn't have the money to get more?: Never true Within the past 12 months, did you worry whether your food would run out before you got money to buy more?: Never true Do you have trouble paying for medicines?: No Do you have trouble getting transportation to medical appointments?: No Do you have trouble paying your heating and electricity bill?: No Do you have trouble taking care of your child, family member or friend?: No Do you have trouble with day-to-day activities such as bathing, preparing meals, shopping, managing finances, etc.?: No Are you currently unemployed and looking for a job?: I choose not to answer this question Are you interested in more education?: No Please select the resources that you would like help with: None Currently or been in a relationship where the following occur: No concerns reported THRIVE Score: 0 AUDIT C Alcohol Use Questionnaire (AUDIT-C) 1. How often do you have a drink containing alcohol?: Monthly or less 2. How many drinks containing alcohol do you have on a typical day when you are drinking?: 5 or 6 3. How often do you have six or more drinks on one occasion?: Less than monthly Total Score: 4 Score Reviewed/Action Taken: Yes JAEL-7 AMB Questionnaire JAEL-7 Date JAEL - 7 assessed: 12/13/23 Feeling nervous, anxious, or on edge: 0 = Not at all Not being able to stop or control worryin = Not at all Worrying too much about different things: 0 = Not at all Trouble relaxin = Not at all Being so restless that it is hard to sit still: 0 = Not at all Becoming easily annoyed or irritable: 0 = Not at all Feeling afraid as if something awful might happen: 0 = Not at all Total JAEL-7 score (0-4 normal; 5-9 mild; 10-14 moderate; 15-21 severe): 0 Source: Developed by Drs. Wilber Arellano, Tanika Zambrano, Palmer Tabares and colleagues, with an educational grace from [employer]. JAEL-7 Assessment Billing JAEL-7 Assessment Tool: JAEL-7 Assessment 36015 Review of Systems Const Reports no additional complaints Eyes Details: Has glaucoma, sees Dr. Dent every 3 month Denies change in vision ENT Denies hearing loss and Denies mouth pain Card Reports no additional complaints Resp Reports no additional complaints GI Reports no additional complaints and Reports heartburn (Controlled on famotidine) Reports no additional complaints Musc Reports no additional complaints Skin/Breast Denies pruritus, Denies lesions, Denies rash and Denies jaundice Neuro Reports no additional complaints Psych Reports no additional complaints Endo Reports no additional complaints Todd/Lymph Reports no additional complaints Aller/Immun Reports no additional complaints Physical exam (Primary Care) Vital Signs: Last Vital Signs Pulse 73 12/13/23 12:02 BP 110/66 12/13/23 12:02 Pulse Ox 96 12/13/23 12:02 Oxygen Delivery Method Room Air 12/13/23 12:02 BMI result Body Mass Index 33.0 Tobacco/Smoking Status: Tobacco use Status Tobacco use date assessed 12/13/23 12/13/23 12:06 Patient Tobacco Use Status Current everyday Tobacco 12/13/23 12:06 Tobacco use type Cigarette 12/13/23 12:06 e-Cigarette/Vaping Use Never Used 12/13/23 12:06 PHQ-9: PHQ-9 Score PHQ-9: Total score 0 12/13/23 12:29 Depression Screening Interpretation: Negative Thrive Assessment: Date of Thrive Assessment Date Thrive assessed 12/13/23 12/13/23 12:06 Currently or been in a relationship where the following occur: No concerns reported Const General: cooperative, comfortable and no acute distress Orientation/consciousness: patient oriented x3 HENMT Head: Yes normocephalic and Yes atraumatic Ears: hearing grossly normal bilaterally and external ears normal General nose exam: Normal external nose present Mouth: Normal oral and palatal mucosa present and moist mucous membranes Teeth and gingiva: edentulous Eyes General: appearance normal, both eyes and all related structures Conjunctivae: conjunctivae normal Pupils: Equal, round and reactive pupils present EOM: EOMs intact bilaterally Neck Neck: Yes full ROM, Yes no lymphadenopathy and Yes supple Chest Chest palpation & inspection: normal inspection of the chest Resp Effort & Inspection: normal respiratory effort and able to speak in complete sentences Auscultation: clear to auscultation bilaterally Cardio Rate: regular rate Rhythm: regular rhythm Heart sounds: S1 normal heart sound present and S2 normal heart sound present GI Inspection: Yes obesity Palpation (GI): Soft to palpation, nontender and no masses Auscultation: normal bowel sounds Neuro General: patient oriented x3, gait normal, tone normal, moves all extremities, Normal light touch and pain sensation and no focal motor deficits Cranial nerves: Yes Equal, round and reactive pupils present Cognition (Neuro): normal cognition Gait exam (Neuro): Normal gait present Motor exam (neuro): 5/5 motor strength present throughout Extrem General: Yes full ROM, Yes no joint enlargement, Yes no clubbing, cyanosis or edema, Yes no calf tenderness and Yes normal gait Results Reviewed Results Reviewed: david: Wilber Diane Age/Sex: 53/M : 1970 Unit#: [id number] Attend Dr: Flores High MD Re12/09/23 Status: DEP REF Location: [facility] [address] Disch: SPEC : [id number] SHAWNA: 12/09/23 STATUS: COMP REQ : [id number] RECD: 12/09/[address]: Flores High MD COMP: 12/09/23 ENTERED: 12/09/[address]: ORDERED: AST, ALT, Lipid Panel Test Result Flag Reference AST (GOT) 36 5-37 U/L ALT (GPT) 23 0-40 U/L Triglyceride 196 H <150 mg/dL Desirable Triglyceride: less than 150 mg/dL Borderline High Triglyceride 150-199 mg/dL High Triglyceride: 200-499 mg/dL Very High Triglyceride: greater than or equal to 5OO mg/dL Cholesterol 185 <200 mg/dL Desirable Cholesterol: less than 200 mg/dL Borderline High Cholesterol: 200-239 mg/dL High Cholesterol: greater than 239 mg/dL LDL Calculated 104 H <100 mg/dL Desirable LDL: less than 100 mg/dL Near Optimal/Above Optimal LDL: 110-129 mg/dL Borderline High LDL: 130-159 mg/dL High LDL: 160-189 mg/dL Very High LDL: greater than or equal to 190 mg/dL HDL 42 >40 mg/dL Desirable HDL: greater than 40 mg/dL Coding Level of Care Code Est Pt Level 3 (01611) Complex EM visit Add On G2211 Diagnoses Hypertriglyceridemia E78.1 Additional Codes JAEL-7 Assessment Billing - JAEL-7 Assessment Tool: JAEL-7 Assessment 24342 ([id number]) Assessment & Plan Assessment & Plan (1) Hypertriglyceridemia: Code(s): E78.1 - Pure hyperglyceridemia Category: Medical Plan: Reviewed recent fasting lipid profile with patient with triglycerides still elevated. Discontinued gemfibrozil and will start him on fenofibrate micronized 134 mg taken once a day Continue adherence to low-cholesterol diet and regular exercise, at least 3nutes 3 to 4 times a week. Advised patient to make healthy food choices, eat more fruits, vegetables, whole grains, wild caught fish and low-fat dairy. Limit amount of meat and fried or fatty food products, as well as processed foods and fast foods. Follow-up scheduled with repeat fasting lipid panel in 3 months. Orders: Orders Lipid Panel 03/10/24 E78.1 - Pure hyperglyceridemia Alanine Aminotransferase 03/10/24 E78.1 - Pure hyperglyceridemia Aspartate Amino Transferase 03/10/24 E78.1 - Pure hyperglyceridemia Medications: New fenofibrate micronized 134 mg PO DAILY 90 caps 2RF E78.1 - Pure hyperglyceridemia Discontinued gemfibrozil Discontinued Reason: Doctor's Order 600 mg PO BID 90 days 180 tabs 1RF E78.1 - Pure hyperglyceridemia
== END 2023-12-13 12:40 | disposition home or self-care (01) ==
LOC: HO.HMCC 11:20
PROVIDERS: PCP Internal Medicine; Visit Provider Internal Medicine
DX: E78.1 Pure hyperglyceridemia (principal)

== ENCOUNTER → 2023-12-13 11:19 | Outpatient (BNVA) | payer OTHER, SELFPAY | PROVIDERS: PCP Internal Medicine; Visit Provider Internal Medicine | DX: E78.1 Pure hyperglyceridemia (principal) | CPT/HCPCS: 96127; 99212 ==

== ENCOUNTER 2024-03-09 08:17 | Outpatient (REF) | payer OTHER, SELFPAY ==
[2024-03-09 11:17] LABS: Alanine Aminotransferase 20 U/L (0-40); Aspartate Amino Transferase 27 U/L (5-37); Cholesterol 192 mg/dL (<200); HDL Cholesterol 45 mg/dL (>40); LDL Cholesterol Calculated 115 mg/dL (<100); Triglycerides 162 mg/dL (<150)
== END 2024-03-09 08:18 | disposition home or self-care (01) ==
LOC: HO.HMGCLDS 08:17
PROVIDERS: PCP Internal Medicine; Visit Provider Internal Medicine
DX: E78.1 Pure hyperglyceridemia (principal)
CPT/HCPCS: 36415; 80061; 84450; 84460

== ENCOUNTER 2024-03-13 07:54 | Outpatient (AMB) | payer OTHER, SELFPAY ==
--- NOTE | 2024-03-13 07:55 | MHC.PC.OV ---
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 Accompanied by: Self / Same As Patient Allergies penicillin G [Penicillin G] Allergy (Unknown, Verified 03/13/24 08:40) EYES SWELL egg Allergy (Verified 03/13/24 08:40) Diarrhea barium sulfate Adverse Reaction (Unknown, Verified 03/13/24 08:40) mood swings oxycodone [Percocet] Adverse Reaction (Unknown, Verified 03/13/24 08:40) gi upset zyban Adverse Reaction (Unknown, Uncoded 03/13/24 08:40) flatulence Medication List - Last Reconciled 03/13/24 by Flores High MD brimonidine 0.2% 1 drp ophthalmic (eye) BID famotidine 20 mg PO BEDTIME PRN gemfibrozil 600 mg PO DAILY omega-3 fatty acids 1,000 mg PO DAILY timolol maleate (PF) 0.5% 1 drp ophthalmic (eye) DAILY Tobacco use date assessed: 03/13/24 Dental Screening Dental Screen Date: 03/13/24 Did you have a dental visit in the last 12 months?: Yes Did you have a dental problem in the last 6 months where you did not have access to dental care?: No Was dental information given to patient?: Patient has dentist HPI 3 month f/u HPI Details - The patient is a 54-year-old male presenting For follow up on his Hypertriglyceridemia. - Current medications include fish oil and gemfibrozil 600 mg once daily, chosen over newly prescribed fenofibrate due to concern for kidney and liver side effects, although recent tests indicated normal liver and kidney function. - Uses famotidine as needed for sporadic heartburn management. - Had a 20-pound weight gain in the last 2 months, which patient attributes to lack of exercise.Plans to resume regular walking activity to assist with weight control. - Glaucoma managed regularly with specialist visits every three months. -Overdue for colon cancer screening does not want to get colonoscopy procedure nor does he want to do Cologuard testing - Patient does not want to get any COVID booster, flu vaccine or shingles vaccine [facility] Medical History Legal blindness Colon cancer screening declined COVID-19 vaccination declined Heartburn Smoker unmotivated to quit Impaired fasting glucose Obesity (BMI 30-39.9) Hx of pancreatitis Glaucoma Hypertriglyceridemia Surgical History Status post glaucoma surgery Family History Father Cerebral aneurysm Mother Hyperlipidemia Hypertension Diabetes mellitus Social History Housing: House Alcohol intake: former Patient Tobacco Use Status: Current everyday Tobacco user Tobacco use type: Cigarette Cigarettes Per Day: 4 e-Cigarette/Vaping Use: Never Used Substance Use Type: Marijuana service: No Current occupational status: disabled Cognitive needs: No Hearing needs: No Vision needs: Yes Questionnaire PHQ-9 Over the last 2 weeks, how often have you been bothered by any of the following problems? 1. Little interest or pleasure in doing things: not at all 2. Feeling down, depressed, or hopeless: not at all 3. Trouble falling or staying asleep, or sleeping too much: not at all 4. Feeling tired or having little energy: not at all 5. Poor appetite or overeating: not at all 6. Feeling bad about yourself - or that you are a failure or have let yourself or your family down: not at all 7. Trouble concentrating on things, such as reading the newspaper or watching television: not at all 8. Moving or speaking so slowly that other people could have noticed. Or the opposite - being so fidgety or restless that you have been moving around a lot more than usual: not at all 9. Thoughts that you would be better off or of hurting yourself in some way: not at all Total score: 0 Depression Screening Interpretation: Negative Depression Screening Done: Yes 38574 - PHQ-9 Billing: Yes Source: Developed by Drs. Wilber Arellano, Tanika Zambrano, Palmer Tabares and colleagues, with an educational grace from [employer]. Thrive Questionnaire Date Thrive assessed: 03/13/24 I am a: Patient What is your living situation today?: I have a steady place to live Within the past 12 months, did the food you bought not last and you didn't have the money to get more?: Never true Within the past 12 months, did you worry whether your food would run out before you got money to buy more?: Never true Do you have trouble paying for medicines?: No Do you have trouble getting transportation to medical appointments?: No Do you have trouble paying your heating and electricity bill?: No Do you have trouble taking care of your child, family member or friend?: No Do you have trouble with day-to-day activities such as bathing, preparing meals, shopping, managing finances, etc.?: No Are you currently unemployed and looking for a job?: No Are you interested in more education?: No Please select the resources that you would like help with: None Currently or been in a relationship where the following occur: I choose not to answer THRIVE Score: 0 AUDIT C Alcohol Use Questionnaire (AUDIT-C) 1. How often do you have a drink containing alcohol?: Monthly or less 2. How many drinks containing alcohol do you have on a typical day when you are drinking?: 3 or 4 3. How often do you have six or more drinks on one occasion?: Less than monthly Total Score: 3 Score Reviewed/Action Taken: Yes JAEL-7 AMB Questionnaire JAEL-7 Date JAEL - 7 assessed: 03/13/24 Feeling nervous, anxious, or on edge: 0 = Not at all Not being able to stop or control worryin = Not at all Worrying too much about different things: 0 = Not at all Trouble relaxin = Not at all Being so restless that it is hard to sit still: 0 = Not at all Becoming easily annoyed or irritable: 0 = Not at all Feeling afraid as if something awful might happen: 0 = Not at all Total JAEL-7 score (0-4 normal; 5-9 mild; 10-14 moderate; 15-21 severe): 0 Source: Developed by Drs. Wilber Arellano, Tanika Zambrano, Palmer Tabares and colleagues, with an educational grace from [employer]. JAEL-7 Assessment Billing JAEL-7 Assessment Tool: JAEL-7 Assessment 08066 Review of Systems Const Reports no additional complaints Eyes Details: Has glaucoma, sees Dr. Dent every 3 month Card Reports no additional complaints Resp Reports no additional complaints GI Reports no additional complaints and Reports heartburn (Controlled on famotidine) Reports no additional complaints Musc Reports no additional complaints Skin/Breast Denies pruritus, Denies lesions, Denies rash and Denies jaundice Neuro Reports no additional complaints Psych Reports no additional complaints Endo Reports no additional complaints Todd/Lymph Reports no additional complaints Aller/Immun Reports no additional complaints Physical exam (Primary Care) Vital Signs: Last Vital Signs Temp 98.3 F 03/13/24 07:56 Pulse 76 03/13/24 07:56 BP 102/66 03/13/24 07:56 Pulse Ox 95 03/13/24 07:56 BMI result Body Mass Index 34.7 Tobacco/Smoking Status: Tobacco use Status Tobacco use date assessed 03/13/24 03/13/24 07:56 Patient Tobacco Use Status Current everyday Tobacco 03/13/24 07:56 Tobacco use type Cigarette 03/13/24 07:56 e-Cigarette/Vaping Use Never Used 03/13/24 07:56 PHQ-9: PHQ-9 Score PHQ-9: Total score 0 03/13/24 07:56 Depression Screening Interpretation: Negative Thrive Assessment: Date of Thrive Assessment Date Thrive assessed 03/13/24 03/13/24 07:56 Currently or been in a relationship where the following occur: I choose not to answer Const General: cooperative, comfortable and no acute distress Orientation/consciousness: patient oriented x3 HENMT Head: Yes normocephalic Ears: external ears normal General nose exam: Normal external nose present Mouth: Normal oral and palatal mucosa present and moist mucous membranes Teeth and gingiva: edentulous Eyes General: appearance normal, both eyes and all related structures Conjunctivae: conjunctivae normal EOM: EOMs intact bilaterally Neck Neck: Yes full ROM, Yes no lymphadenopathy and Yes supple Resp Effort & Inspection: normal respiratory effort and able to speak in complete sentences Auscultation: clear to auscultation bilaterally Cardio Rate: regular rate Rhythm: regular rhythm Heart sounds: S1 normal heart sound present and S2 normal heart sound present GI Inspection: Yes obesity Palpation (GI): Soft to palpation, nontender and no masses Auscultation: normal bowel sounds Neuro General: patient oriented x3, gait normal, tone normal and no focal motor deficits Cognition (Neuro): normal cognition Gait exam (Neuro): Normal gait present Extrem General: Yes full ROM, Yes no joint enlargement, Yes no clubbing, cyanosis or edema, Yes no calf tenderness and Yes normal gait Results Reviewed Results Reviewed: Name: Wilber Diane Age/Sex: 54/M : 1970 Unit#: [id number] Attend Dr: Flores High MD Re03/09/24 Status: DEP [facility] Dis[facility]: SPEC : [id number] SHAWNA: 03/09/24 STATUS: COMP REQ : [id number] RECD: 03/09/[address]: Flores High MD COMP: 03/09/24 ENTERED: 03/09/[address]: ORDERED: AST, ALT, Lipid Panel Test Result Flag Reference AST (GOT) 27 5-37 U/L ALT (GPT) 20 0-40 U/L Triglyceride 162 H <150 mg/dL Desirable Triglyceride: less than 150 mg/dL Borderline High Triglyceride 150-199 mg/dL High Triglyceride: 200-499 mg/dL Very High Triglyceride: greater than or equal to 5OO mg/dL Cholesterol 192 <200 mg/dL Desirable Cholesterol: less than 200 mg/dL Borderline High Cholesterol: 200-239 mg/dL High Cholesterol: greater than 239 mg/dL LDL Calculated 115 H <100 mg/dL Desirable LDL: less than 100 mg/dL Near Optimal/Above Optimal LDL: 110-129 mg/dL Borderline High LDL: 130-159 mg/dL High LDL: 160-189 mg/dL Very High LDL: greater than or equal to 190 mg/dL HDL 45 >40 mg/dL Desirable HDL: greater than 40 mg/dL Note: This HDL assay may give artificially low results in patients with liver disease. Coding Level of Care Code Est Pt Level 4 (04762) Complex EM visit Add On G2211 Diagnoses Hypertriglyceridemia E78.1 Obesity (BMI 30-39.9) E66.9 Impaired fasting glucose R73.01 Heartburn R12 Additional Codes JAEL-7 Assessment Billing - JAEL-7 Assessment Tool: JAEL-7 Assessment 50320 ([id number]) PHQ-9 - 78737 - PHQ-9 Billing: Yes ([id number]) Assessment & Plan Assessment & Plan (1) Hypertriglyceridemia: Code(s): E78.1 - Pure hyperglyceridemia Category: Medical (2) Obesity (BMI 30-39.9): Code(s): E66.9 - Obesity, unspecified Category: Medical (3) Impaired fasting glucose: Code(s): R73.01 - Impaired fasting glucose Category: Medical (4) Heartburn: Code(s): R12 - Heartburn Category: Medical Plan Current pharmacological treatment for hyperlipidemia involves gemfibrozil 600 mg once daily, advised to increase to twice-daily fish oil . Resume regular exercise, and adherence to healthy eating habits. He is currently followed by Dr. Dent for glaucoma follow-up and regular eye exam Options for colorectal cancer screening discussed with patient which includes either colonoscopy or Cologuard, but patient does not want to do either at present time. Vaccination declined by patient -he is scheduled for physical exam in 09/26/2024, advised to repeat fasting labs prior to appointment Patient was informed and verbally consented to the use of an ambient scribe for clinic note documentation during this visit. Orders: Orders Lipid Panel 09/07/24 E66.9 - Obesity, unspecified, E78.1 - Pure hyperglyceridemia, R12 - Heartburn, R73.01 - Impaired fasting glucose Basic Metabolic Panel Fasting 09/07/24 E66.9 - Obesity, unspecified, E78.1 - Pure hyperglyceridemia, R12 - Heartburn, R73.01 - Impaired fasting glucose Aspartate Amino Transferase 09/07/24 E66.9 - Obesity, unspecified, E78.1 - Pure hyperglyceridemia, R12 - Heartburn, R73.01 - Impaired fasting glucose Alanine Aminotransferase 09/07/24 E66.9 - Obesity, unspecified, E78.1 - Pure hyperglyceridemia, R12 - Heartburn, R73.01 - Impaired fasting glucose
[2024-03-13 07:56] VITALS: BP 102/66; PULSE 76; TEMP 36.8; O2SAT 95; BMI 34.4
== END 2024-03-13 09:45 | disposition home or self-care (01) ==
PROVIDERS: PCP Internal Medicine; Visit Provider Internal Medicine
DX: E78.1 Pure hyperglyceridemia (principal); E66.9 Obesity, unspecified; Z68.34 Body mass index [BMI] 34.0-34.9, adult; R73.01 Impaired fasting glucose; R12 Heartburn

== ENCOUNTER → 2024-03-13 07:54 | Outpatient (BNVA) | payer OTHER, SELFPAY | PROVIDERS: PCP Internal Medicine; Visit Provider Internal Medicine | DX: E78.1 Pure hyperglyceridemia (principal); E66.9 Obesity, unspecified; R73.01 Impaired fasting glucose; R12 Heartburn | CPT/HCPCS: 96127; 99212 ==

== ENCOUNTER 2024-09-27 07:58 | Outpatient (REF) | payer OTHER, SELFPAY ==
[2024-09-27 10:41] LABS: Alanine Aminotransferase 26 U/L (0-40); Anion Gap 11 (12-20); Aspartate Amino Transferase 36 U/L (5-37); Blood Urea Nitrogen 20 mg/dL (9-16); Calcium 9.1 mg/dL (8.4-10.2); Carbon Dioxide 25 mmol/L (22-29); Chloride 108 mmol/L (96-108); Cholesterol 216 mg/dL (<200); Estimated Glomerular Filt Rate > 60; HDL Cholesterol 37 mg/dL (>40); Potassium 4.0 mmol/L (3.3-5.1); Sodium 140 mmol/L (135-145); Triglycerides 194 mg/dL (<150)
== END 2024-09-27 07:59 | disposition home or self-care (01) ==
LOC: HO.HMGCLDS 07:58
PROVIDERS: PCP Internal Medicine; Visit Provider Internal Medicine
DX: E78.1 Pure hyperglyceridemia (principal); R12 Heartburn; R73.01 Impaired fasting glucose; E66.9 Obesity, unspecified
CPT/HCPCS: 36415; 80048; 80061; 84450; 84460

== ENCOUNTER 2024-10-01 10:10 | Outpatient (AMB) | payer OTHER, SELFPAY ==
[2024-10-01 10:14] VITALS: BP 110/78; PULSE 72; RESP 16; TEMP 36.8; O2SAT 97; BMI 34.1
--- NOTE | 2024-10-01 10:14 | A.OFFPC_ITS ---
Vital Signs 10/01/24 10:14 Height 6 ft 2 in Weight 266 lb BMI 34.1 BP 110/78 Blood Pressure Location Rt brachial Position Sitting Respiration 16 Pulse 72 Pulse Source Pulse Oximeter Temp 98.2 F Temp Source Oral Pulse Oximetry (%) 97 Oxygen Delivery Method Room Air Intake Visit Reasons: Annual PE Intake Note: Pt is here today for his PE: Last cologuard 01/15/23 Shed Boss: Present Allergies penicillin G (Penicillin G) Allergy (Unknown, Verified 10/01/24 10:27) EYES SWELL egg Allergy (Verified 10/01/24 10:27) Diarrhea barium sulfate Adverse Reaction (Unknown, Verified 10/01/24 10:27) mood swings oxycodone (Percocet) Adverse Reaction (Unknown, Verified 10/01/24 10:27) gi upset zyban Adverse Reaction (Unknown, Uncoded 10/01/24 10:27) flatulence Medication List - Last Reconciled 10/01/24 by Flores High MD brimonidine 0.2% 1 drp ophthalmic (eye) BID famotidine 20 mg PO BEDTIME PRN omega-3 fatty acids 1,000 mg PO DAILY timolol maleate (PF) 0.5% 1 drp ophthalmic (eye) DAILY Tobacco use date assessed: 10/01/24 Dental Screening Dental Screen Date: 03/13/24 Did you have a dental visit in the last 12 months?: No Did you have a dental problem in the last 6 months where you did not have access to dental care?: No Was dental information given to patient?: Patient declined HPI Annual PE HPI Details 84-year-old male with history of glaucom a , legally blind, currently followed by Dr. Dent, here today for physical exam. Up-to-date with his colon cancer screening, last Cologuard was done in the 2022 with negative findings due again for recheck in a year. Can use to smoke cigarettes, at least 4 cigarettes a day, no desire to quit at present time Had recent fasting labs done which showed higher triglycerides, LDL cholesterol and low HDL as compared to last check. His fasting glucose also is elevated at 116 mg/dL. Patient states that he has been feeling well, with no complaints at present time. Does not want to get any vaccines, up-to-date with his Tdap, only received 2 doses of the COVID vaccine does not want to get booster PFSH Medical History Legal blindness Colon cancer screening declined COVID-19 vaccination declined Heartburn Smoker unmotivated to quit Impaired fasting glucose Obesity (BMI 30-39.9) Hx of pancreatitis Glaucoma Hypertriglyceridemia Surgical History Status post glaucoma surgery Family History Father Cerebral aneurysm Mother Hyperlipidemia Hypertension Diabetes mellitus Social History Housing: House Alcohol intake: former Patient Tobacco Use Status: Current everyday Tobacco user Tobacco use type: Cigarette Cigarettes Per Day: 4 e-Cigarette/Vaping Use: Never Used Substance Use Type: Marijuana service: No Current occupational status: disabled Cognitive needs: No Hearing needs: No Vision needs: Yes Questionnaire PHQ-9 Over the last 2 weeks, how often have you been bothered by any of the following problems? Depression Screening Interpretation: Negative Depression Screening Done: Yes Source: Developed by Drs. Wilber Arellano, Tanika Zambrano, Palmer Tabares and colleagues, with an educational grace from [employer]. Thrive Questionnaire Date Thrive assessed: 03/13/24 Currently or been in a relationship where the following occur: I choose not to answer THRIVE Score: 0 JAEL-7 AMB Questionnaire JAEL-7 Date JAEL - 7 assessed: 03/13/24 Source: Developed by Drs. Wilber Arellano, Tanika Zambrano, Palmer Tabares and colleagues, with an educational grace from [employer]. Review of Systems Const Reports no additional complaints Eyes Details: Has glaucoma, sees Dr. Dent every 3 month Card Reports no additional complaints Resp Reports no additional complaints GI Reports no additional complaints and Reports heartburn (Controlled on famotidine) Reports no additional complaints Musc Reports no additional complaints Skin/Breast Denies pruritus, Denies lesions, Denies rash and Denies jaundice Neuro Reports no additional complaints Psych Reports no additional complaints Endo Reports no additional complaints Todd/Lymph Reports no additional complaints Aller/Immun Reports no additional complaints Physical exam (Primary Care) Vital Signs: Last Vital Signs Temp 98.2 F 10/01/24 10:14 Pulse 72 10/01/24 10:14 Resp 16 10/01/24 10:14 BP 110/78 10/01/24 10:14 Pulse Ox 97 10/01/24 10:14 Oxygen Delivery Method Room Air 10/01/24 10:14 BMI result Body Mass Index 34.1 Tobacco/Smoking Status: Tobacco use Status Tobacco use date assessed 10/01/24 10/01/24 10:18 Patient Tobacco Use Status Current everyday Tobacco 10/01/24 10:18 Tobacco use type Cigarette 10/01/24 10:18 e-Cigarette/Vaping Use Never Used 10/01/24 10:18 Depression Screening Interpretation: Negative Thrive Assessment: Date of Thrive Assessment Date Thrive assessed 03/13/24 10/01/24 10:18 Currently or been in a relationship where the following occur: I choose not to answer Const General: cooperative and no acute distress Orientation/consciousness: patient oriented x3 HENMT Head: Yes normocephalic Ears: external ears normal General nose exam: Normal external nose present Mouth: Normal oral and palatal mucosa present and moist mucous membranes Teeth and gingiva: edentulous Neck Neck: Yes full ROM, Yes no lymphadenopathy and Yes supple Resp Effort & Inspection: normal respiratory effort and able to speak in complete sentences Auscultation: clear to auscultation bilaterally Cardio Rate: regular rate Rhythm: regular rhythm Heart sounds: S1 normal heart sound present and S2 normal heart sound present GI Inspection: Yes obesity Palpation (GI): Soft to palpation, nontender and no masses Auscultation: normal bowel sounds Other: Declined exam General: Yes no CVA tenderness Back/Spine/Pelvis Back: no CVA tenderness and No back tenderness Skin General skin exam: no rashes or lesions noted Neuro General: patient oriented x3, gait normal, tone normal and no focal motor deficits Cognition (Neuro): normal cognition Gait exam (Neuro): Normal gait present Extrem General: Yes full ROM, Yes no joint enlargement, Yes no clubbing, cyanosis or edema, Yes no calf tenderness and Yes normal gait Psych Appearance: grossly normal Mental Status: mental status grossly normal Speech and movement: Normal speech and movement present Affect: normal affect Results Reviewed Results Reviewed: Name: ParentWilber Age/Sex: 54/M : 1970 Unit#: [id number] Attend Dr: Flores High MD Re09/27/24 Status: DEP REF Location: [facility] Disch: SPEC : [id number] [place]: 09/27/24 STATUS: COMP REQ : [id number] RECD: 09/27/[address]: Flores High MD COMP: 09/27/24 ENTERED: 09/27/[address] [facility] [address]: ORDERED: Met Prof Fast, AST, ALT, Lipid Panel Test Result Flag Reference Sodium 140 135-145 mmol/L Potassium 4.0 3.3-5.1 mmol/L CL 108 96-108 mmol/L CO2 25 22-29 mmol/L Gap 11 L 12-20 BUN 20 H 9-16 mg/dL Creat 0.96 0.5-1.4 mg/dL eGFR > 60 Chronic Kidney Disease: Estimated GFR < 60 mL/min/1.73m2 Severe Kidney Disease: Estimated GFR < 15 mL/min/1.73m2 FBS 116 H 60-99 mg/dL A fasting glucose from 100-125 mg/dl is considered impaired (pre-diabetes). CA 9.1 8.4-10.2 mg/dL AST (GOT) 36 5-37 U/L ALT (GPT) 26 0-40 U/L Triglyceride 194 H <150 mg/dL Desirable Triglyceride: less than 150 mg/dL Borderline High Triglyceride 150-199 mg/dL High Triglyceride: 200-499 mg/dL Very High Triglyceride: greater than or equal to 5OO mg/dL Cholesterol 216 H <200 mg/dL Desirable Cholesterol: less than 200 mg/dL Borderline High Cholesterol: 200-239 mg/dL High Cholesterol: greater than 239 mg/dL LDL Calculated 141 H <100 mg/dL Desirable LDL: less than 100 mg/dL Near Optimal/Above Optimal LDL: 110-129 mg/dL Borderline High LDL: 130-159 mg/dL High LDL: 160-189 mg/dL Very High LDL: greater than or equal to 190 mg/dL HDL 37 L >40 mg/dL Desirable HDL: greater than 40 mg/dL Note: This HDL assay may give artificially low results in patients with liver disease. Coding Level of Care Code Est Pt Prev Care 40-64y(66933) Diagnoses Annual visit for general adult medical examination with abnormal findings Z00.01 Hypertriglyceridemia E78.1 Obesity (BMI 30-39.9) E66.9 Impaired fasting glucose R73.01 Glaucoma of both eyes, unspecified glaucoma type H40.9 Glaucoma type: unspecified Laterality: bilateral Heartburn R12 Smoker unmotivated to quit F17.200 Advance directive discussed with patient Z71.89 Assessment & Plan Assessment & Plan (1) Annual visit for general adult medical examination with abnormal findings: Code(s): Z00.01 - Encounter for general adult medical examination with abnormal findings (2) Hypertriglyceridemia: Code(s): E78.1 - Pure hyperglyceridemia Category: Medical (3) Obesity (BMI 30-39.9): Code(s): E66.9 - Obesity, unspecified Category: Medical (4) Impaired fasting glucose: Code(s): R73.01 - Impaired fasting glucose Category: Medical (5) Glaucoma: Comment: ff'd by Dr Dent Code(s): H40.9 - Unspecified glaucoma Category: Medical Qualifiers: Glaucoma type: unspecified Laterality: bilateral Qualified Code(s): H40.9 - Unspecified glaucoma (6) Heartburn: Code(s): R12 - Heartburn Category: Medical (7) Smoker unmotivated to quit: Code(s): F17.200 - Nicotine dependence, unspecified, uncomplicated Category: Social Hx (8) Advance directive discussed with patient: Code(s): Z71.89 - Other specified counseling Plan: Initiated the conversation about Advanced Directives. Advanced Directives help patients prepare for current and future decisions about their medical treatment and place of care. Discussed with patient that it is a process where a patients current condition and prognosis are reviewed, their wishes for information regarding their illness are elicited, and likely medical dilemmas are presented and options discussed. Healthcare proxy form completed today. The form can be amended as needed, reviewed yearly and make changes as needed Plan The patient currently followed by Dr. Dent for his glaucoma and routine eye exam. Regular ophthalmology follow-ups are recommended to monitor the condition. For hyperlipidemia, advised to increase fish oil supplement intake and adhere to dietary changes to manage cholesterol levels. A follow-up lipid panel will be conducted to evaluate the effectiveness of these interventions. The patient is encouraged to continue reducing cigar use and consider smoking cessation support, currently not ready to quit at present time. Does not want to get further vaccines, up-to-date with his Tdap, given in 2018. Reminded to get his repeat Cologuard testing next year. Has impaired fasting glucose, and advised adherence to healthy eating habits and regular exercise to prevent further progression to diabetes. Fasting labs ordered to be drawn in January 2025 Patient was informed and verbally consented to the use of an ambient scribe for clinic note documentation during this visit. Orders: Orders Lipid Panel 01/12/25 E6.9 - Obesity, unspecified, E78.1 - Pure hyperglyceridemia, R73.01 - Impaired fasting glucose Basic Metabolic Panel Fasting 01/12/25 E6.9 - Obesity, unspecified, E78.1 - Pure hyperglyceridemia, R73.01 - Impaired fasting glucose Alanine Aminotransferase 01/12/25 E66.9 - Obesity, unspecified, E78.1 - Pure hyperglyceridemia, R73.01 - Impaired fasting glucose Aspartate Amino Transferase 01/12/25 E66.9 - Obesity, unspecified, E78.1 - Pure hyperglyceridemia, R73.01 - Impaired fasting glucose Vitamin D 25-OH Total 01/12/25 E66.9 - Obesity, unspecified, E78.1 - Pure hyperglyceridemia, R73.01 - Impaired fasting glucose Hemoglobin A1c 01/12/25 E66.9 - Obesity, unspecified, E78.1 - Pure hyperglyceridemia, R73.01 - Impaired fasting glucose
== END 2024-10-01 10:56 | disposition home or self-care (01) ==
LOC: HO.HMCC 10:10
PROVIDERS: PCP Internal Medicine; Visit Provider Internal Medicine
DX: Z00.01 Encounter for general adult medical examination with abnormal findings (principal); E78.1 Pure hyperglyceridemia; E66.9 Obesity, unspecified; Z68.34 Body mass index [BMI] 34.0-34.9, adult; R73.01 Impaired fasting glucose; H40.9 Unspecified glaucoma; R12 Heartburn; F17.200 Nicotine dependence, unspecified, uncomplicated; Z71.89 Other specified counseling

== ENCOUNTER → 2024-10-01 10:10 | Outpatient (BNVA) | payer OTHER, SELFPAY | PROVIDERS: PCP Internal Medicine; Visit Provider Internal Medicine | DX: Z00.01 Encounter for general adult medical examination with abnormal findings (principal); E78.1 Pure hyperglyceridemia; E66.9 Obesity, unspecified; R73.01 Impaired fasting glucose; H40.9 Unspecified glaucoma; R12 Heartburn; F17.210 Nicotine dependence, cigarettes, uncomplicated; Z71.89 Other specified counseling; Z68.34 Body mass index [BMI] 34.0-34.9, adult | CPT/HCPCS: 99396 ==